=== PATIENT | female | born 1950 | race Caucasian/White ===

== ENCOUNTER 2018-10-20 11:16 | Inpatient (IN) | payer OTHER, MEDICAID ==
[~2018-10-20] VITALS: Ht 157.5 cm; Wt 110.7 kg
--- NOTE | ~2018-10-20 | EKG ---
[place], [place] ELECTROCARDIOGRAM REPORT NAME: ESME ORTIZ UNIT #: [id number] ROOM: 420 DOCTOR: OMID DRAFT REPORT BIRTHDATE: [birth year] [facility] Test Date: 2018-10-20 Test Time: 12:18:38 Pat Name: ESME ORTIZ Department: Room: 420 Gender: F Acid Conditioner: : 1950 Requested By: ZEV SANTORO Order Number: [id number] Reading MD: Landon Anne MD Measurements Intervals [place] Rate: 63 P: 69 CT: 176 QRS: -40 QRSD: 137 T: 59 QT: 436 QTc: 447 Interpretive Statements Sinus rhythm Probable left atrial enlargement Left bundle branch block Baseline wander in lead(s) V1 No previous ECG available for comparison Electronically Signed On 10-22-2018 11:21:27 PST by Landon Anne MD CM:EKGRPT:ELECTROCARDIOGRAM REPORT [id number] ZEV ANNE DRAFT REPORT ZEV SANTORO M.D.
[2018-10-20 11:18] VITALS: BP 163/68
--- NOTE | 2018-10-20 11:38 | NUR ---
PT UNABLE TO WALK. BEDSIDE TOUILET BROUGHT TO BEDSIDE BUT SHE IS UNABLE TO EFFECTIVELY BEAR WEIGHT FOR THIS AND IS UNABLE TO MAINTAIN A SEATED POSTURE INDEPENDENTLY AND WAS IMMEDIATELY RETURNED TO BED WITH 3 STAFF MEMBER ASSIST. PT DISROBED, CHECKED FOR WOUNDS AND A CAI CATH PLACED PER HER REQUEST. PT IS CONFUSED TO TIME AND LOCATION AND DOES NOT RESPOND TO REORIENTATION BUT SHE IS CALM, PLEASANT AND COMPLIANT.
[2018-10-20 11:47] LABS: BILIRUBIN NEGATIVE (NEGATIVE); BLOOD 1+ (NEGATIVE); CLARITY SL CLOUDY (CLEAR); COLOR YELLOW (YELLOW); GLUCOSE TRACE (NEGATIVE); KETONE NEGATIVE (NEGATIVE); LEUKO ESTERASE NEGATIVE (NEGATIVE); NITRITE NEGATIVE (NEGATIVE); PH 5.5 (5.0-9.0); UROBILINOGEN 0.2 E.U./dl (0.2-1.0)
[2018-10-20 12:06] LABS: BACTERIA 3+
[2018-10-20 12:20] LABS: BASO % 0.4 % (0.0-1.0); EOS # 0.2 10*3/uL (0.0-0.4); EOS % 2.3 % (1.0-4.0); HEMATOCRIT 28.1 % (37.0-47.0); HEMOGLOBIN 8.8 g/dl (12.0-16.0); LYMPH % 12.5 % (27.0-41.0); MEAN CELL VOLUME 96.2 fl (81.0-99.0); MEAN CORPUSCULAR HGB 30.1 pg (27.0-31.0); MEAN CORPUSCULAR HGB CONC 31.3 g/dl (33.0-37.0); MEAN PLATELET VOLUME 10.5 fl (9.6-12.3); MONO # 0.5 10*3/uL (0.1-1.0); MONO % 6.3 % (3.0-9.0); NEUT # 6.4 10*3/uL (2.3-7.9); NEUT % 78.3 % (47.0-73.0); PLATELET COUNT AUTOMATED 238 10*3/uL (130-400); RED BLOOD COUNT 2.92 10*6/uL (4.10-5.10); RED CELL DISTRI WIDTH 13.5 % (0-14.5); WHITE BLOOD COUNT 8.2 10*3/uL (4.8-10.8)
[2018-10-20 12:39] LABS: ALBUMIN 2.2 gm/dl (3.1-4.5); CREATININE 3.22 mg/dL (0.55-1.02); TOTAL PROTEIN 5.8 gm/dL (6.4-8.2)
[2018-10-20 12:42] LABS: POTASSIUM 6.3 mmol/L (3.5-5.1)
[2018-10-20 13:19] VITALS: BP 150/57
--- NOTE | 2018-10-20 13:50 | NUR ---
IV SITE PLACED LEFT UPPER ARM BY MOSHE. I HAD MISSED TWICE INITIALLY THEN ANOTHER 3 OR 4 MISSED ATTEMPTS BY NATHANAEL.
[2018-10-20 14:15] VITALS: BP 160/80
--- NOTE | 2018-10-20 14:15 | NUR ---
A 68, admitted to , under the services of DILIA Monroy DO with a diagnosis of PNEUMONIA, HYPERKALEMIA, ACUTE KIDNEY DISEASE. Chief complaint is PSYCHOLOGICAL EVALUATION. Patient arrived via bed from ER. Monitor applied. Initial assessment completed. Vital signs taken and recorded. DILIA MONROY DO notified of admission to the unit. Orders received. See assessment for past medical history, medications and allergies. Patient and/or family oriented to unit. [facility]. Clothing/patient valuable form completed. ALEXEY GARNER
[2018-10-20] MEDS ORDERED: ARTIFICIAL TEA1 EACH OP (14:46)
[2018-10-20] MEDS ORDERED: ELIQUIS5 M1 PO (14:46)
[2018-10-20] MEDS ORDERED: NORVASC5 MG PO (14:46)
[2018-10-20] MEDS ORDERED: BUMETANIDE1 MG PO (14:47)
[2018-10-20] MEDS ORDERED: ATORVASTATIN CA80 M1 PO (14:47)
[2018-10-20] MEDS ORDERED: ASPIR 8181 MG PO (14:47)
[2018-10-20] MEDS ORDERED: VITAMIN B-12250 MCG PO (14:48)
[2018-10-20] MEDS ORDERED: IRON325 M1 PO (14:48)
[2018-10-20] MEDS ORDERED: FLONASE ALLERG9.9 ML NAS (14:49)
[2018-10-20] MEDS ORDERED: NATURE'S BLEND F1 MG PO (14:49)
[2018-10-20] MEDS ORDERED: GEODON80 MG PO (14:50)
[2018-10-20] MEDS ORDERED: GABAPENTIN400 MG PO (14:50)
[2018-10-20] MEDS ORDERED: GEODON20 M1 IM (14:51)
[2018-10-20] MEDS ORDERED: HYDROXYZINE HCL25 MG PO (14:51)
[2018-10-20] MEDS ORDERED: HUMALOG100 UNIT/2 SQ (14:53)
[2018-10-20] MEDS ORDERED: KLOR-CON M2020 ME1 PO (14:54)
[2018-10-20] MEDS ORDERED: ISOSORBIDE DINI20 MG PO (14:54)
[2018-10-20] MEDS ORDERED: ZESTRIL10 MG PO (14:55)
[2018-10-20] MEDS ORDERED: LACTULOSE10 GM/153 PO (14:55)
[2018-10-20] MEDS ORDERED: LOMOTIL 2.5-0.1 EACH PO (14:56)
[2018-10-20] MEDS ORDERED: LOPRESSOR50 M1 PO (14:57)
[2018-10-20] MEDS ORDERED: GUAIFENESIN600 MG PO (14:58)
[2018-10-20] MEDS ORDERED: MIRALAX119 GM PO (14:58)
[2018-10-20] MEDS ORDERED: PAXIL40 M1 PO (14:59)
[2018-10-20] MEDS ORDERED: NITROSTAT0.4 MG SL (14:59)
[2018-10-20] MEDS ORDERED: TOUJEO SOL300 UNIT/1 SQ (15:00)
[2018-10-20] MEDS ORDERED: PROTONIX40 MG PO (15:00)
[2018-10-20] MEDS ORDERED: TRULANCE PO (15:02)
--- NOTE | 2018-10-20 15:04 | NUR ---
MED REC UPDATED VIA LIST PROVIDED BY [facility]
--- NOTE | 2018-10-20 15:50 | NUR ---
DR LYLE MADE AWARE OF SCAB TO TOE
--- NOTE | 2018-10-20 15:50 | NUR ---
DAUGHTER CALLED IN AND STATED THAT THE PATIENT DOES NOT HAVE A POA AND THAT SHE IS HER CONTACT WHEN SHE IS AT THE PRISON. JAMEY DID LIST THIS DAUGHTER ON THE PAPERWORK HER POA
[2018-10-20 16:00] VITALS: BP 154/60
--- NOTE | 2018-10-20 16:09 | NUR ---
PHYSICIAN WAS NOTIFIED OF DR. MCMAHON CONSULT. RESPONSE OF NOTIFICATION WAS NEW ORDERS RECEIVED, STOP LISINOPRIL,BUMEX AND POTASSIUM, KEEP CAI AND MAINTAIN ACCURATE I&O, URINE LYTES, URINE UREA NITROGEN, URINE CREATININE, RENAL US, LASIX 40MG IV NOW, INSULIN/DEXTROSE NOW. THEN REPEAT K IN 2 HRS.. ALEXEY GARNER
--- NOTE | 2018-10-20 16:32 | NUR ---
OFFICE STAFF WAS NOTIFIED OF BEHAVIORAL HEALTH CONSULT. RESPONSE OF NOTIFICATION WAS OK I'LL PUT HER ON THE BOARD. ALEXEY GARNER
--- NOTE | 2018-10-20 19:45 | NUR ---
BEDSIDE REPORT FROM SHEELA-RN. PATIENT IS AWAKE AND ALERT, VOICED NO COMPLAINTS AT THIS TIME. PARTICIPATED IN REPORT, PT STATES THAT SHE HAS HALLICINATED BUGS AND CHILDREN. NO DISTRESS NOTED, RESP ARE ERND ON ROOM AIR. BED IS LOCKED IN LOWEST POSITION, BED ALARM MAINTAINED. CALL LIGHT LEFT WITHIN REACH.
[2018-10-20 20:00] VITALS: BP 153/65
--- NOTE | 2018-10-20 21:20 | NUR ---
PATIENT MEDICATED WITH TYLENOL FOR C/O GENERALIZED BACL PAIN 01/06. WILL MONITOR.
--- NOTE | 2018-10-20 22:00 | NUR ---
PATIENT ASLEEP, CALL LIGHT LEFT WITHIN REACH.
--- NOTE | 2018-10-20 22:20 | NUR ---
TYLENOL APPEARS TO BE EFFECTIVE. PATIENT RESTING COMFORTABLY IN BED, EYES CLOSED, NO DISTRESS. CALL LIGHT LEFT WITHIN REACH.
[2018-10-21] VITALS: BP 92/38
--- NOTE | 2018-10-21 | NUR ---
SLEEPING, NO DISTESS NOTED. CALL LIGHT WITHIN REACH.
--- NOTE | 2018-10-21 00:25 | NUR ---
INFORMED OF MANUAL BP=92/38. STATED HE WILL ORDER ANOTHER BAG OF FLUIDS.
--- NOTE | 2018-10-21 02:00 | NUR ---
PATIENT SLEEPING, NO DISTRESS NOTED. RESP ARE ERND ON ROOM AIR. CALL LIGHT WITHIN REACH.
--- NOTE | 2018-10-21 02:27 | NUR ---
URINE SPECIMEN SENT TO LAB.
[2018-10-21 03:34] LABS: URINE CREATININE RANDOM 62.4 mg/dL
--- NOTE | 2018-10-21 04:00 | NUR ---
RESTING COMFORTABLY IN BED. CALL LIGHT WITHIN REACH.
--- NOTE | 2018-10-21 04:41 | NUR ---
24 HR chart check completed.
[2018-10-21 06:21] LABS: BASO % 0.4 % (0.0-1.0); EOS # 0.3 10*3/uL (0.0-0.4); EOS % 5.1 % (1.0-4.0); HEMATOCRIT 24.8 % (37.0-47.0); HEMOGLOBIN 7.7 g/dl (12.0-16.0); LYMPH # 1.3 10*3/uL (1.3-4.4); LYMPH % 26.5 % (27.0-41.0); MEAN CELL VOLUME 96.1 fl (81.0-99.0); MEAN CORPUSCULAR HGB 29.8 pg (27.0-31.0); MEAN PLATELET VOLUME 10.8 fl (9.6-12.3); MONO # 0.4 10*3/uL (0.1-1.0); MONO % 8.5 % (3.0-9.0); NEUT # 2.9 10*3/uL (2.3-7.9); NEUT % 59.3 % (47.0-73.0); PLATELET COUNT AUTOMATED 210 10*3/uL (130-400); RED BLOOD COUNT 2.58 10*6/uL (4.10-5.10); RED CELL DISTRI WIDTH 13.5 % (0-14.5); WHITE BLOOD COUNT 4.9 10*3/uL (4.8-10.8)
[2018-10-21 06:43] LABS: CREATININE 3.16 mg/dL (0.55-1.02)
[2018-10-21 06:50] LABS: THYROID STIM HORMONE (HS) 1.32 uIU/ml (0.358-4.75)
--- NOTE | 2018-10-21 07:08 | NUR ---
ESME ORTIZ [id number] Please refer to the physician's history and physical for past medical history, comorbid conditions, and allergies. Diagnosis: PNEUMONIA HYPERKALEMIA AC KIDNEY FAILURE W Brennon Score: 17,AT RISK WOUND DESCRIPTIONS: Patient has intact scab measuring 0.4cm x 0.3cm x <0.1 noted to right 4th toe. Patient is requesting to care for this area at home and she is also requesting to have podiatry cut her toenails. Surface the patient is resting on: Isoflex SKIN PREVENTION RECOMMENDATION: 1. Pressure redistribution support surface as appropriate 2. Elevate heels 3. Remove boots/TEDS every shift and reapply 4. Head of bed 30 degrees as tolerated 5. Assess nutrition and hydration 6. Manage moisture 7. Avoid the use of containment devices while in bed 8. Use absorptive products on surfaces limit layers of linens on bed 9. Turn and reposition every 1-2 hours in bed and every 1 hour in chair as tolerated 10. Weight shifts every 15 minutes while up in chair 11. Offloading with pillows or device to keep heels elevated off bed 12. Monitor skin at least every shift 13. Inspect under medical devices twice a day WOUND TREATMENT RECOMMENDATIONS: Consult podiatry for toenail care.
[2018-10-21 07:20] VITALS: BP 138/80
[2018-10-21 08:06] LABS: FERRITIN 130.9 ng/mL (10.0-291.0)
[2018-10-21 08:07] LABS: PTH INTACT 184.8 pg/mL (18.5-88.0)
--- NOTE | 2018-10-21 09:26 | NUR ---
Dr. Singh notified of wound care recommendations.
--- NOTE | 2018-10-21 10:30 | NUR ---
DR. ONOFRE NOTIFIED OF CONSULT FOR FOOT CARE.
[2018-10-21 12:00] VITALS: BP 154/60
--- NOTE | 2018-10-21 15:35 | NUR ---
PATIENT IN ULTRASOUND FOR VENOUS/ARTERIAL STUDIES. RECEIVED PHONE CALL FROM DAIRY EQUIPMENT REPAIRER RE: PATIENT WAS BY HERSELF FOR A SHORT TIME, THEN FOUND CRAWLING ON THE FLOOR, INCONTINENT OF URINE AND STATING "GETTING PICKLES OUT OF THE FRIDGE". PATIENT STATED SHE LET HER OWN SIDERAIL DOWN SO SHE COULD GET OUT. PATIENT DENIED ANY INJURY, PER STAFF, AND IS STILL DOWN IN THE DEPARTMENT. DR. LYLE NOTIFIED.
[2018-10-21 16:00] VITALS: BP 113/96
--- NOTE | 2018-10-21 16:21 | NUR ---
PATIENT BACK FROM ULTRASOUND, IS AGITATED AND COMBATIVE WITH TRANSFERRING FROM CART TO BED AND ASSESSMENTS. SHE IS SEEING INSECTS AND STATES THE STAFF ARE CHILDREN.
--- NOTE | 2018-10-21 17:01 | NUR ---
ADMINISTERED IM GEODON FOR AGITATION.
--- NOTE | 2018-10-21 17:57 | NUR ---
PRN IM GEODON EFFECTIVE, PATIENT RESTING CALMLY.
[2018-10-21 20:00] VITALS: BP 154/50
--- NOTE | 2018-10-21 23:40 | NUR ---
PATIENT YELLING OUT THAT SHE IS ON THE CEILING AND THAT SOMEONE NEEDS TO COME AND GET HER DOWN. ALSO YELLING THAT THERE ARE BEES FLYING AROUND. PRN IV GEODON GIVEN FOR AGITATION. PT ALSO INCONTINENT OF BOWEL AT THIS TIME.
[2018-10-22] VITALS: BP 119/40
--- NOTE | 2018-10-22 00:15 | NUR ---
PRN GEODON APPEARS EFFECTIVE, PT CALM AND NOT YELLING OUT. RESP EASY AND REGULAR ON ROOM AIR, NO DISTRESS NOTED.
--- NOTE | 2018-10-22 03:20 | NUR ---
IV started right forearm with #24 protective cath after 3 attempts. Site prepped with Chloroprep. Sterile dressing applied. Patient tolerated procedure well. BRI BARCENAS
[2018-10-22 06:25] LABS: BASO % 0.2 % (0.0-1.0); EOS # 0.2 10*3/uL (0.0-0.4); EOS % 4.4 % (1.0-4.0); HEMATOCRIT 25.7 % (37.0-47.0); HEMOGLOBIN 8.1 g/dl (12.0-16.0); LYMPH % 19.5 % (27.0-41.0); MEAN CELL VOLUME 95.2 fl (81.0-99.0); MEAN CORPUSCULAR HGB CONC 31.5 g/dl (33.0-37.0); MONO # 0.4 10*3/uL (0.1-1.0); MONO % 8.2 % (3.0-9.0); NEUT # 3.5 10*3/uL (2.3-7.9); NEUT % 67.5 % (47.0-73.0); PLATELET COUNT AUTOMATED 221 10*3/uL (130-400); RED CELL DISTRI WIDTH 13.3 % (0-14.5); WHITE BLOOD COUNT 5.2 10*3/uL (4.8-10.8)
[2018-10-22 06:32] LABS: CREATININE 2.78 mg/dL (0.55-1.02); POTASSIUM 4.4 mmol/L (3.5-5.1)
[2018-10-22 08:00] VITALS: BP 142/50
[2018-10-22 12:00] VITALS: BP 143/68
[2018-10-22 12:13] LABS: MICRO ALBUMIN/CRE RATIO 2558.6 (0.0-30.0)
[2018-10-22] MEDS ORDERED: LEVAQUIN750 M1 PO (13:18)
[2018-10-22 16:00] VITALS: BP 135/52
--- NOTE | 2018-10-22 16:45 | NUR ---
Discharge instructions reviewed with patient/family. Patient receptive and verbalizes understanding. Follow-up care arranged WITH PCP AND NEPROLOGY IN ONE WEEK. WRITTEN INSTRUCTIONS GIVEN TO PATIENT. PATIENT TAKEN OFF THE FLOOR VIA BED TO U WITH ESCORT AND U NURSE PRESENT, IV SITE REMOVED. SULMA AGEE
== END 2018-10-22 16:45 | disposition home health service (06) | DRG 682 ==
LOC: ED 11:16 → 4E 13:53 → EDHOLD 13:53 → 4E 13:59
PROVIDERS: Emergency Medicine; Internal Medicine Nephrology; Student in an Organized Health Care Education/Training Program; ADMIT Internal Medicine
DX: N17.0 Acute kidney failure with tubular necrosis (principal); E43 Unspecified severe protein-calorie malnutrition; J18.9 Pneumonia, unspecified organism; I13.0 Hypertensive heart and chronic kidney disease with heart failure and stage 1 through stage 4 chronic kidney disease, or unspecified chronic kidney disease; N25.81 Secondary hyperparathyroidism of renal origin; N18.3 Chronic kidney disease, stage 3 (moderate); E87.5 Hyperkalemia; E87.8 Other disorders of electrolyte and fluid balance, not elsewhere classified; E11.65 Type 2 diabetes mellitus with hyperglycemia; I48.0 Paroxysmal atrial fibrillation; E66.01 Morbid (severe) obesity due to excess calories; D63.8 Anemia in other chronic diseases classified elsewhere; E86.0 Dehydration; E83.39 Other disorders of phosphorus metabolism; E83.52 Hypercalcemia; E11.22 Type 2 diabetes mellitus with diabetic chronic kidney disease; F41.1 Generalized anxiety disorder; E78.5 Hyperlipidemia, unspecified; G47.33 Obstructive sleep apnea (adult) (pediatric); F32.9 Major depressive disorder, single episode, unspecified; I50.9 Heart failure, unspecified; G51.0 Bell's palsy; Z90.49 Acquired absence of other specified parts of digestive tract; Z90.710 Acquired absence of both cervix and uterus; Z79.82 Long term (current) use of aspirin; Z79.84 Long term (current) use of oral hypoglycemic drugs; Z79.899 Other long term (current) drug therapy

== ENCOUNTER 2018-10-22 15:59 | Inpatient (IN) | payer OTHER, MEDICAID ==
[~2018-10-22] VITALS: Ht 157.4 cm; Wt 108.9 kg
--- NOTE | ~2018-10-22 | PR ---
[place], [place] PROGRESS NOTE NAME: ESME ORTIZ UNIT #: [id number] ROOM: 316 DOCTOR: RODOFLO JONES MD BIRTHDATE: [birth year] DOS: 10/28/2018 CHIEF COMPLAINT: "Oh good morning, I would like to get better." SUMMARY OF THE VISIT: The patient was interviewed as she was finishing her breakfast. She engaged in more meaningful conversation than she had been, although it was very superficial. She lacks spontaneity, but did respond to my questions. She does seem to have memory gaps still that are rather persistent. MENTAL STATUS: She is alert and oriented to person, most likely place, but not time. Mood does seem to be more euthymic. Affect is more appropriate. There is no pat or hypomania noted, although nurses report bizarre behavior at times and at times responding to unforeseen others or seeing things. Short term memory continues to be problematic. PLAN: I will check a valproic acid level at 1500 hours given the fact that she is on the Depakote ER prep. I will simultaneously increase Exelon patch from 4.6 to 9.5 mg a day while increasing Namenda to 5 mg b.i.d. We will engage in individual and sotelo milieu activity, returning to the least restrictive environment when psychiatrically stable. RODOLFO JONES MD CM:PNTRANS [id number] RODOLFO JONES MD 10/28/18 1155 interface
--- NOTE | ~2018-10-22 | PR ---
[place], [place] PROGRESS NOTE NAME: ESME ORTIZ UNIT #: [id number] ROOM: 316 DOCTOR: RODOLFO JONES MD BIRTHDATE: [birth year] DOS: 11/04/2018 INTERVAL NOTE CHIEF COMPLAINT: "I want some more [place]." SUMMARY OF THE VISIT: The patient was interviewed in the dining area. She had already eaten her breakfast and was sitting drinking a grape juice. The patient was much more alert and able to engage in conversation. Her conversation for the most part was goal directed and she was very fixated on getting seconds. She was pleasant and cooperative. There was no yelling out. There was no agitation. Nurses report that she was somewhat somnolent for the most part yesterday, but as the day progressed, this seemed to improve. Her BUN and creatinine are improving from yesterday's highest level. MENTAL STATUS EXAMINATION: This morning, she is alert and oriented to person, place, but not time. Mood does seem to be finally trending towards euthymia. Affect is more appropriate. There is no pat or hypomania. There are no gross psychotic symptoms. There are no overt auditory or visual hallucinations. No delusions, no paranoia. PLAN: I will discontinue her Depakote ER. Since admission her level has been subtherapeutic and I doubt any pharmacologic significance from the Depakote instead I will just maintain her on Geodon at bedtime. We will monitor and support, engage in individual and sotelo milieu activity, returning to the least restrictive environment when psychiatrically stable. RODOLFO JONES MD CM:PNTRANS [phone] RODOLFO JONES MD 11/04/18 1402 interface
--- NOTE | ~2018-10-22 | PR ---
[place], [place] PROGRESS NOTE NAME: ESME ORTIZ UNIT #: [id number] ROOM: 316 DOCTOR: JAILENE PERES CNP BIRTHDATE: [birth year] DOS: 11/01/2018 CHIEF COMPLAINT: "I slept really well last night." SUMMARY OF VISIT: The patient was interviewed as she sat in the dining room, eating her lunch. The patient engaged readily in conversation with me. She reports that she slept very well last night and she feels rested today. She reports feeling better and less irritable. She reports that her appetite is good. Staff reports that the patient slept all night and did not get up until before lunch. No behaviors noted today. No yelling out. MENTAL STATUS EXAMINATION: The patient is alert and oriented to person, place and time with some memory gaps. No pat or hypomania noted. No delusions or paranoia noted. No psychotic symptoms noted. No auditory or visual hallucinations noted. Mood was calm. Affect congruent with mood. No lethargy noted today. PLAN: The patient's ammonia level was 19 today. Neurontin level has been ordered for November 02. Her H and H has improved, so we will continue the patient's medications as prescribed at this time as she seems to be tolerating them. Continue to encourage the patient to engage in individual and sotelo milieu activity. Continue fall and safety precautions. Plan to return the patient to the least restrictive environment once considered psychiatrically stable. Jailene Peres CNP CM:PNTRANS [id number] JAILENE PERES CNP 11/02/18 0217 interface
--- NOTE | ~2018-10-22 | PR ---
[place], [place] PROGRESS NOTE NAME: ESME ORTIZ UNIT #: [id number] ROOM: 316 DOCTOR: RDOOLFO JONES MD BIRTHDATE: [birth year] DOS: 11/05/2018 INTERVAL NOTE CHIEF COMPLAINT: "Morning." SUMMARY OF THE VISIT: The patient was interviewed or attempted to be interviewed as she was sleeping in a Janette chair in the dining area. It took me several attempts to engage her and she did open her eyes briefly to say good morning and then went back to sleep. This seems to be her pattern. 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 Otherwise, her behavior has improved and she has been much more cooperative and pleasant as the day goes on. MENTAL STATUS: She is alert and oriented with time gaps. Mood does seem to be more euthymic. Affect more appropriate. No pat, hypomania or psychosis. Short-term memory still is problematic. PLAN: I will go ahead and max out her dose of Namenda, bringing it to 10 mg b.i.d. Continue to engage in individual and sotelo milieu activity, returning to the least restrictive environment when psychiatrically stable. RODOLFO JONES MD CM:PNTRANS [id number] 1 RODOLFO JONES MD 11/06/18 0242 interface
--- NOTE | ~2018-10-22 | PR ---
[place], [place] PROGRESS NOTE NAME: ESME ORTIZ UNIT #: [id number] ROOM: 316 DOCTOR: RODOLFO JONES MD BIRTHDATE: [birth year] DOS: 10/26/2018 CHIEF COMPLAINT: The patient was overly somnolent. SUMMARY OF THE VISIT: The patient was attempted to be interviewed in the dining area. She was sleeping. I called her name out repeatedly, but to no avail. I did put my hand on her shoulder and did shake her very gently. She did not arouse. Nurses report she continues to exhibit significant psychotic symptomatology with mood lability. MENTAL STATUS: My mental status is limited by her lack of participation due to somnolence. PLAN: At this point, I will check a Neurontin level in the a.m. to ensure it is therapeutic. I will increase her Invega from 6 to 9 mg in the morning and add Cogentin 0.5 mg b.i.d. to eliminate any potential extrapyramidal symptoms. Her mouth did appear dry as I interviewed her, so I have given order for Xero-Lube spray p.r.n. We will continue to engage in individual and sotelo milieu activity, returning to the least restrictive environment when psychiatrically stable. RODOLFO JONES MD CM:PNTRANS [id number] 1250 RODOLFO JONES MD 10/26/18 1250 interface
--- NOTE | ~2018-10-22 | PR ---
[place], [place] PROGRESS NOTE NAME: ESME ORTIZ UNIT #: [id number] ROOM: 316 DOCTOR: RODOLFO JONES MD BIRTHDATE: [birth year] DOS: 10/29/2018 CHIEF COMPLAINT: "Oh, I'm feeling pretty good, thank you." SUMMARY OF THE VISIT: The patient was interviewed as she was finishing her breakfast. She was very much engaged in eating. She did stop enough to engage in conversation. She voiced no complaints, reporting good sleep and appetite and stating that she is feeling better. MENTAL STATUS: She is alert and oriented to person, place, but not time. Mood does seem to be trending towards euthymia. Affect is more appropriate. There is no pat, hypomania or gross psychosis. Short term memory remains poor. PLAN: I will go ahead and maximize the dose of Exelon patch to 13.3 mg a day, consider doing the same to the Namenda tomorrow or the next day, engage in individual and sotelo milieu activity, returning then to the least restrictive environment when psychiatrically stable. RODOLFO JONES MD CM:PNTRANS [id number] RODOLFO JONES MD 10/29/18 1210 interface
--- NOTE | ~2018-10-22 | PR ---
[place], [place] PROGRESS NOTE NAME: ESME ORTIZ UNIT #: [id number] ROOM: 316 DOCTOR: KENY, PHD ANN BIRTHDATE: [birth year] DOS: 11/03/2018 The patient was too somnolent to participate in an evaluation. I will follow up tomorrow. Dana Severino PhD CM:PNTRANS [id number] PHD SETH SEVERINO 11/04/18 0019 interface
--- NOTE | ~2018-10-22 | PR ---
[place], [place] PROGRESS NOTE NAME: ESME ORTIZ UNIT #: [id number] ROOM: 316 DOCTOR: KENY, PHD ANN BIRTHDATE: [birth year] DOS: 11/02/2018 I followed up with the patient today for cognitive evaluation. She was slightly more alert than she was previously, but her speech was unintelligible. I will follow up with the patient tomorrow. Dana Severino, PhD CM:PNTRANS [phone] 3 PHD SETH SEVERINO 11/03/184 interface
--- NOTE | ~2018-10-22 | WRIGHTHP ---
[place], [place] PATIENT HISTORY AND PHYSICAL EXAM [id number] UNIT #: [id number] ROOM: 317 DOCTOR: RODOLFO JONES MD BIRTHDATE: [birth year] DOS: 10/22/2018 INITIAL PSYCHIATRIC EVALUATION CHIEF COMPLAINT: "I guess I am here to get my meds fixed." HISTORY OF PRESENT ILLNESS: This is a 68-year-old white female who is a resident of [facility] in [place], [place]. The patient was initially admitted to the medical floor due to increased hypertension, heart failure and hyperkalemia. The patient though had been [facility] for [facility] because of bizarre behavior. The patient had been picking at bugs that were not there, falling to the ground once because she was reaching so far to get a suspected bug. She also had been yelling out to staff to help her come down from the ceiling stating that she was floating on the ceiling and could not come down. This behavior was a significant change from her baseline. She also had significant alterations in basic ADLs such as poor sleep and appetite. Given the fact that these behaviors were so prominent, it was felt that an inpatient stabilization and evaluation was warranted. PAST MEDICAL HISTORY: Significant for allergic rhinitis, anemia of chronic disease, atrial fibrillation, Juan's palsy, congestive heart failure, chronic kidney disease stage 3, gait disturbance, hypertension, GERD, hyperlipidemia, morbid obesity, obstructive sleep apnea, diabetes, vitamin D deficiency and a lengthy history of major depression. SOCIAL HISTORY: The patient does not drink alcohol, smoke cigarettes nor does she use illicit drugs. ALLERGIES: LISTED TOWARDS BACITRACIN, KETOROLAC, NEOMYCIN, POLYMYXIN B. STRENGTHS: Ambulatory, good verbal skills. WEAKNESSES: Poor coping skills, chronic psychiatric issues. MENTAL STATUS: She is alert and oriented with time gaps. Mood does seem to be rather depressed and anxious. She is somewhat guarded and this was not totally forthcoming on the events that led to her coming into the hospital. Nurses do report some rather bizarre sexual behavior where she had stripped naked and was masturbating publicly. Memory has some gaps, otherwise she is intact. DIAGNOSES: Major depression, recurrent with psychotic features, rule out bipolar or schizoaffective disorder. PLAN: I have already discontinued her Paxil in lieu of Remeron 15 mg at bedtime. I have also discontinued her Geodon, which is being given at 80 mg b.i.d. in lieu of Invega 6 mg in the morning. She was episodically noncompliant with her medications while at the long-term care facilities. By limiting the amount of meds that are being presented to her my hope is that she will be more compliant and we can breakthrough some of the mood lability and psychosis. Screening examinations upon admission show her to have a low vitamin D level of [place], [place] PATIENT HISTORY AND PHYSICAL EXAM NAME: ESME ORTIZ UNIT #: [id number] ROOM: [facility] DOCTOR: RODOLFO JONES MD BIRTHDATE: [birth year] 12.9. I will treat with vitamin D 5000 International Units daily. We will engage in individual and sotelo milieu activity with the ultimate plan to return to the least restrictive environment when psychiatrically stable. RODOLFO JONES MD CM:HISPHYS:PATIENT HISTORY AND PHYSICAL EXAMINATION [id number] RODOLFO JONES MD 10/23/18 0955 interface
--- NOTE | ~2018-10-22 | PR ---
[place], [place] PROGRESS NOTE NAME: ESME ORTIZ UNIT #: [id number] ROOM: 316 DOCTOR: RODOLFO JONES MD BIRTHDATE: [birth year] DOS: 11/02/2018 CHIEF COMPLAINT: "Oh thank you for visiting." SUMMARY OF THE VISIT: The patient was interviewed as she was sitting eating breakfast. She had most of her tray eaten, and I only found out that this was her second tray when the staff intervened. She was very bright and pleasant with me and engaging. She offered no complaints. Staff notes, however, she has periods when she seems to become extremely confused and talk nonsensically. These can occur at various times a day and even at night. They are often accompanied by her becoming wildly labile and yelling out nonstop. MENTAL STATUS EXAMINATION: This morning, she is alert and oriented to person, place, not necessarily to time. Mood does seem to be fairly euthymic this morning. There was no hypomania or pat. There are no gross psychotic symptoms evident this morning. Short-term memory though was poor. PLAN: I will go ahead and discontinue Invega due to ineffectiveness and start Geodon 40 mg twice daily. Of note, her BUN and creatinine have continued to inch up gradually since her admission, and I will defer this to the hospitalist to determine if any further intervention is required. RODOLFO JONES MD CM:PNTRANS [phone] RODOLFO JONES MD 11/02/18 1234 interface
--- NOTE | ~2018-10-22 | PR ---
[place], [place] PROGRESS NOTE NAME: ESME ORTIZ UNIT #: [id number] ROOM: 316 DOCTOR: PHD SETH SEVERINO BIRTHDATE: [birth year] DOS: 10/28/2018 SUBJECTIVE: The patient was too somnolent to participate in an evaluation today. I will follow up tomorrow. Dana Severino, CM:DENA [id number] PHD SETH SEVERINO 10/28/18 1444 interface
--- NOTE | ~2018-10-22 | CON ---
[place], [place] REPORT OF CONSULTATION NAME: ESME ORTIZ UNIT #: [id number] ROOM: 316 DOCTOR: PHD KENY SETH BIRTHDATE: [birth year] DOS: 11/04/2018 HISTORY OF PRESENT ILLNESS: The patient is a 68-year-old female referred by Dr. William for cognitive evaluation. At the present time, the patient is on the [facility] at [facility]. She is a resident at [facility] where she had been exhibiting bizarre behavior such as reaching for bugs that were not there. This represents a significant change from her baseline functioning. She has been from her for about 12 years, but they remain close. She had 3 children, one of her sons about 4 years ago. She was a [employer] in the past. There is no indication of substance abuse. PAST MEDICAL HISTORY: Allergic rhinitis, atrial fibrillation, Juan's palsy, CKD, edema, hypertension, generalized anxiety disorder, GERD, heart failure, hyperlipidemia, muscle wasting and atrophy, obstructive sleep apnea, type 2 diabetes, vitamin D deficiency. MEDICATIONS: Geodon, Neurontin, Namenda, Exelon, Cogentin, Vistaril, vitamin D, B12, Lantus, Protonix, folic acid, aspirin, Norvasc, Systane, Lopressor, Cephulac, Isordil, Flonase, Feosol, Lipitor, Eliquis, Mucinex, Remeron, Geodon. The patient was sitting comfortably, in no apparent distress. She was oriented to person. She could name the president, but named the past president as Adama Shoemaker. She could not give any current events. Eye contact and social skills are poor. Affect was blunted and mood was Irritable. The patient endorsed suicidal ideation, but stated she did not have a plan. She denied homicidal ideation. Speech was poorly articulated. Thought process was tangential, perseverative. She discussed a johnson. There was evidence of delusions. The patient stated there was a johnson, she did not want to get drawn into with the anti-Semites. She was able to spell world forwards, but not backwards. She could perform 2 correct serial 7 subtractions. She was able to repeat 4 digits forward and 3 digits backward. She was not able to recall 3 items after a brief delay. She only produced 3 words in 1 minute on a test of verbal fluency. Overall, the patient has demonstrated some cognitive deficits in the areas of attention and memory. Contributing factors to her presentation likely include her current health status, medication effects, and of heart disease as well as diabetes and kidney disease. The extent of her cognitive deficits at baseline remains unclear. She would benefit from further testing once she is released from the hospital to further explore her cognitive status. DIAGNOSES: Major depressive disorder, recurrent with psychotic features, rule out schizoaffective disorder; unspecified neurocognitive disorder; unspecified delirium. RECOMMENDATIONS: 1. The patient would likely benefit from further psychological testing upon discharge. 2. Continue to monitor her cognitive status. She may benefit from guardianship if her cognitive abilities do not improve prior to discharge. [place], [place] REPORT OF CONSULTATION NAME: ESME ORTIZ UNIT #: [id number] ROOM: 316 DOCTOR: KENY, PHD SETH BIRTHDATE: [birth year] Thank you very much for this consult. Dana Severino, PhD CM:CONSTR:REPORT OF CONSULTATION 1729 11/10/18 0824 interface
--- NOTE | ~2018-10-22 | PR ---
[place], [place] PROGRESS NOTE NAME: ESME ORTIZ UNIT #: [id number] ROOM: 316 DOCTOR: RODOLFO JONES MD BIRTHDATE: [birth year] DOS: 11/03/2018 CHIEF COMPLAINT: "Good morning." SUMMARY OF THE VISIT: The patient was interviewed or attempted to be interviewed as she was sitting slouched in the dining area. She was somnolent upon approach, but did awaken and engage in brief superficial conversation, but for the most part was very somnolent and her responses were short, at times nonsensical. The patient does also appear to be very dry with her oral mucosa. BUN and creatinine remain markedly elevated. MENTAL STATUS: She is alert and oriented to self. Responses are short, simple. Her responses tended to be at times nonsensical. There was no agitation or aggression. There was no yelling out. Short term memory continues to be problematic. PLAN: I will change her Geodon from 40 mg twice a day to 80 mg at bedtime lessening of the daytime dose so somnolence should be much less during the day. This should also further aid her sleep. We will engage in individual and sotelo milieu activity, returning then to the least restrictive environment when psychiatrically stable. RODOLFO JONES MD CM:PNTRANS [id number] RODOLFO JONES MD 11/03/18 1023 interface
--- NOTE | ~2018-10-22 | PR ---
[place], [place] PROGRESS NOTE NAME: ESME ORTIZ UNIT #: [id number] ROOM: 316 DOCTOR: KENY, PHD ANN BIRTHDATE: [birth year] DOS: 10/29/2018 The patient was again not able to participate in cognitive assessment due to her somnolence. I will follow up with the patient on Friday if she is still here. aDna Severino, PhD CM:PNDALIA [id number] PHD SETH SEVERINO 10/29/18 2332 interface
--- NOTE | ~2018-10-22 | DS ---
[place], [place] DISCHARGE SUMMARY NAME: ESME ORTIZ UNIT #: [id number] ROOM: 316 DOCTOR: RODOLFO JONES MD BIRTHDATE: [birth year] DOS: 11/06/2018 CHIEF COMPLAINT: "I guess I am here to get my meds fixed." HISTORY OF PRESENT ILLNESS: This is a 68-year-old white female who is a resident of [facility] in [place], [place]. The patient was initially admitted to the medical floor at [facility] due to hypertension, heart failure and hyperkalemia. While there, she had been sent to [address] [place] [address] for medical clearance for [facility] admission because of bizarre behavior. The patient had been picking at bugs that were not there, falling to the ground because she was reaching for the bugs. She has been yelling out at staff to come help her. The yelling has become nonstop and has been extremely disruptive to the entire milieu. Attempts to change her medicine have been unsuccessful and the behaviors continued to persist and escalate. She has had poor ADLs as well and has been not eating or drinking well. Once the patient was medically stabilized on the medical floor, she was transferred back to the [facility] to further stabilize her and returning her then to the least restrictive environment when stable. SUMMARY OF HOSPITAL COURSE: The patient was admitted to the unit where her Paxil was discontinued due to ineffectiveness and Remeron 15 mg a day was started. Geodon was discontinued in lieu of Invega 6 mg in the morning. She persisted on these medicines for sometime, it became evident the patient was experiencing some cognitive decline, so Exelon patch was started at 4.6 mg a day and then this was later augmented with Namenda 5 mg a day. The Exelon patch was brought to its maximum dose of 13.3 mg daily while Namenda likewise was brought to its maximum dose of 10 mg b.i.d. After utilizing the Invega for many days without any benefit and noticing that the patient did receive significant benefit when she did receive an intermuscular injection of Geodon, the patient was restarted back on her Geodon with good results. This did seem to stabilize her mood and decrease the yelling out episodes as well as decrease the psychotic symptomatology. She tolerated this combination of medicines well and improved slowly, but significantly during her stay. The patient was able to return back to [facility] at that time. MENTAL STATUS AT DISCHARGE: The patient is alert and oriented to self, unclear place, certainly not time. Mood does seem to be strongly trending towards euthymia. Affect is more appropriate. There are no symptoms of pat, hypomania or psychosis. Memory is still poor. DIAGNOSES UPON DISCHARGE: Major depression, recurrent with psychotic features and Alzheimer's dementia. DISPOSITION: The patient is to be readmitted to [facility]. I will be the treating psychiatrist of record. All of her prescriptions have been E-scribed to [employer] [facility]. At the time of discharge, she was psychiatrically and medically stable. [place], [place] DISCHARGE SUMMARY NAME: ESME ORTIZ UNIT #: [id number] ROOM: [facility] DOCTOR: RODOLFO JONES MD BIRTHDATE: [birth year] RODOLFO JONES MD CM:DISCHARG 7 7 RODOLFO JONES MD 11/06/1859 interface
--- NOTE | ~2018-10-22 | PR ---
[place], [place] PROGRESS NOTE NAME: ESME ORTIZ UNIT #: [id number] ROOM: 316 DOCTOR: JAILENE PERES CNP BIRTHDATE: [birth year] DOS: 10/31/2018 CHIEF COMPLAINT: "I didn't sleep." SUMMARY OF THE VISIT: The patient was interviewed as she sat in the dining room after breakfast. The patient appears to be somewhat lethargic at this time. She does arouse easily when I called her name and she engages minimally in conversation with me. She reports that she did not sleep last night and that she is very tired. Staff reports that the patient continues to exhibit behaviors as well as yelling out at times. They report that she has not been sleeping well at night. Her Neurontin was decreased to 200 mg 3 times a day. MENTAL STATUS EXAMINATION: The patient is alert and oriented to herself only. She does appear somewhat lethargic. There is no pat or hypomania noted. No delusions or paranoia noted. No psychotic symptoms noted. No auditory or visual hallucinations noted. Her mood was calm. Affect was congruent with mood. No aggression or agitation noted at this time. PLAN: We will check a gabapentin level on 11/02/2018. We will also check a serum ammonia level. We will continue to monitor if the patient sleeps with the recent adjustment of Remeron 15 at bedtime. Continue to encourage the patient to engage in individual and sotelo milieu activity. Continue fall and safety precautions. Plan to return the patient to the least restrictive environment once considered psychiatrically stable. Jailene Peres CNP CM:PNTRANS [id number] JAILENE PERES CNP 11/01/18 0220 interface
--- NOTE | ~2018-10-22 | PR ---
[place], [place] PROGRESS NOTE NAME: ESME ORTIZ UNIT #: [id number] ROOM: 316 DOCTOR: RODOLFO JONES MD BIRTHDATE: [birth year] DOS: 10/27/2018 INTERVAL NOTE CHIEF COMPLAINT: "Yeah, I came here from [place]. I used to live in [place]." SUMMARY OF THE VISIT: The patient was interviewed as she was sitting eating her breakfast. She did seem rather perplexed and confused, reporting that she came here to the hospital directly from [place] and that long ago she used to live in [place]. There does seem to be some cognitive impairment present. She was pleasant and cooperative, however, and not agitated in any way. She also was outwardly tolerating the medications well. MENTAL STATUS EXAMINATION: She is alert and oriented with time gaps. Mood does seem to be more euthymic. Affect more appropriate. There is no pat, hypomania. There is no gross psychosis. Short-term memory is problematic. PLAN: I will go ahead and simultaneously start Exelon patch 4.6 mg a day with Namenda 5 mg a day. I will obtain a psychology consult to determine cognitive impairment. RODOLFO JONES MD CM:PNTRANS [id number] RODOLFO JONES MD 10/28/18 0053 interface
[~2018-10-22 15:59] MED LIST: ARTIFICIAL TEA1 EACH OP; ASPIR 8181 MG PO; ATORVASTATIN CA80 M1 PO; BUMETANIDE1 MG PO; ELIQUIS5 M1 PO; FLONASE ALLERG9.9 ML NAS; GABAPENTIN400 MG PO; GEODON20 M1 IM; GEODON80 MG PO; GUAIFENESIN600 MG PO; HUMALOG100 UNIT/2 SQ; HYDROXYZINE HCL25 MG PO; IRON325 M1 PO; ISOSORBIDE DINI20 MG PO; KLOR-CON M2020 ME1 PO; LACTULOSE10 GM/153 PO; LEVAQUIN750 M1 PO; LOMOTIL 2.5-0.1 EACH PO; LOPRESSOR50 M1 PO; MIRALAX119 GM PO; NATURE'S BLEND F1 MG PO; NITROSTAT0.4 MG SL; NORVASC5 MG PO; PAXIL40 M1 PO; PROTONIX40 MG PO; TOUJEO SOL300 UNIT/1 SQ; TRULANCE PO; VITAMIN B-12250 MCG PO; ZESTRIL10 MG PO
[2018-10-22 17:41] VITALS: BP 158/70
[2018-10-22 17:45] VITALS: BP 158/70
[2018-10-22 20:00] VITALS: BP 140/85
[2018-10-23 06:53] LABS: BASO % 0.2 % (0.0-1.0); EOS # 0.3 10*3/uL (0.0-0.4); EOS % 6.3 % (1.0-4.0); HEMATOCRIT 25.6 % (37.0-47.0); HEMOGLOBIN 8.1 g/dl (12.0-16.0); LYMPH # 0.9 10*3/uL (1.3-4.4); LYMPH % 18.8 % (27.0-41.0); MEAN CELL VOLUME 93.8 fl (81.0-99.0); MEAN CORPUSCULAR HGB 29.7 pg (27.0-31.0); MEAN CORPUSCULAR HGB CONC 31.6 g/dl (33.0-37.0); MEAN PLATELET VOLUME 10.3 fl (9.6-12.3); MONO # 0.4 10*3/uL (0.1-1.0); MONO % 7.6 % (3.0-9.0); NEUT # 3.3 10*3/uL (2.3-7.9); NEUT % 66.9 % (47.0-73.0); PLATELET COUNT AUTOMATED 221 10*3/uL (130-400); RED BLOOD COUNT 2.73 10*6/uL (4.10-5.10); RED CELL DISTRI WIDTH 13.1 % (0-14.5); WHITE BLOOD COUNT 4.9 10*3/uL (4.8-10.8)
[2018-10-23 07:08] LABS: ALBUMIN 1.9 gm/dl (3.1-4.5); CREATININE 2.41 mg/dL (0.55-1.02); POTASSIUM 4.2 mmol/L (3.5-5.1); TOTAL PROTEIN 5.3 gm/dL (6.4-8.2)
[2018-10-23 07:15] LABS: THYROID STIM HORMONE (HS) 1.7 uIU/ml (0.358-4.75)
[2018-10-23 08:19] VITALS: BP 154/65
[2018-10-23 08:46] LABS: VITAMIN D, 25-HYDROXY 12.9 ng/mL (30-100)
[2018-10-23 19:32] VITALS: BP 137/79
[2018-10-24 08:00] VITALS: BP 147/56
[2018-10-24 13:40] LABS: BASO % 0.5 % (0.0-1.0); EOS # 0.2 10*3/uL (0.0-0.4); EOS % 5.3 % (1.0-4.0); HEMATOCRIT 23.9 % (37.0-47.0); HEMOGLOBIN 7.7 g/dl (12.0-16.0); LYMPH % 22.4 % (27.0-41.0); MEAN CELL VOLUME 93.7 fl (81.0-99.0); MEAN CORPUSCULAR HGB 30.2 pg (27.0-31.0); MEAN CORPUSCULAR HGB CONC 32.2 g/dl (33.0-37.0); MEAN PLATELET VOLUME 10.5 fl (9.6-12.3); MONO # 0.3 10*3/uL (0.1-1.0); MONO % 7.6 % (3.0-9.0); NEUT # 2.8 10*3/uL (2.3-7.9); PLATELET COUNT AUTOMATED 208 10*3/uL (130-400); RED BLOOD COUNT 2.55 10*6/uL (4.10-5.10); RED CELL DISTRI WIDTH 13.2 % (0-14.5); WHITE BLOOD COUNT 4.4 10*3/uL (4.8-10.8)
[2018-10-24 13:53] LABS: CREATININE 2.31 mg/dL (0.55-1.02); POTASSIUM 4.5 mmol/L (3.5-5.1)
[2018-10-24 20:17] VITALS: BP 136/60
[2018-10-25 06:26] LABS: BASO % 0.2 % (0.0-1.0); EOS # 0.2 10*3/uL (0.0-0.4); EOS % 3.9 % (1.0-4.0); HEMATOCRIT 24.7 % (37.0-47.0); HEMOGLOBIN 7.8 g/dl (12.0-16.0); LYMPH # 0.7 10*3/uL (1.3-4.4); LYMPH % 12.2 % (27.0-41.0); MEAN CELL VOLUME 93.6 fl (81.0-99.0); MEAN CORPUSCULAR HGB 29.5 pg (27.0-31.0); MEAN CORPUSCULAR HGB CONC 31.6 g/dl (33.0-37.0); MEAN PLATELET VOLUME 10.3 fl (9.6-12.3); MONO # 0.4 10*3/uL (0.1-1.0); MONO % 6.6 % (3.0-9.0); NEUT # 4.5 10*3/uL (2.3-7.9); NEUT % 76.8 % (47.0-73.0); PLATELET COUNT AUTOMATED 214 10*3/uL (130-400); RED BLOOD COUNT 2.64 10*6/uL (4.10-5.10); RED CELL DISTRI WIDTH 13.2 % (0-14.5); WHITE BLOOD COUNT 5.9 10*3/uL (4.8-10.8)
[2018-10-25 07:32] VITALS: BP 131/72
[2018-10-25 19:54] VITALS: BP 130/61
[2018-10-26 06:37] LABS: BASO % 0.2 % (0.0-1.0); EOS # 0.3 10*3/uL (0.0-0.4); EOS % 5.9 % (1.0-4.0); HEMATOCRIT 23.5 % (37.0-47.0); HEMOGLOBIN 7.7 g/dl (12.0-16.0); LYMPH # 1.1 10*3/uL (1.3-4.4); LYMPH % 21.8 % (27.0-41.0); MEAN CELL VOLUME 91.4 fl (81.0-99.0); MEAN CORPUSCULAR HGB CONC 32.8 g/dl (33.0-37.0); MEAN PLATELET VOLUME 10.6 fl (9.6-12.3); MONO # 0.4 10*3/uL (0.1-1.0); MONO % 8.9 % (3.0-9.0); NEUT # 3.1 10*3/uL (2.3-7.9); PLATELET COUNT AUTOMATED 202 10*3/uL (130-400); RED BLOOD COUNT 2.57 10*6/uL (4.10-5.10); RED CELL DISTRI WIDTH 13.1 % (0-14.5)
[2018-10-26 06:49] LABS: CREATININE 2.03 mg/dL (0.55-1.02); PHOSPHOROUS 4.2 mg/dL (2.5-4.9)
[2018-10-26 08:01] VITALS: BP 143/67
[2018-10-26 20:09] VITALS: BP 143/67
[2018-10-27 07:58] VITALS: BP 133/61
[2018-10-27 20:00] VITALS: BP 149/73
[2018-10-28 07:30] LABS: CREATININE 2.14 mg/dL (0.55-1.02); PHOSPHOROUS 4.2 mg/dL (2.5-4.9); POTASSIUM 4.1 mmol/L (3.5-5.1)
[2018-10-28 08:33] VITALS: BP 157/81
[2018-10-28 09:07] LABS: NEURONTIN (GABAPENTIN) 33.3 ug/mL (4.0-16.0)
[2018-10-28 15:49] LABS: BASO % 0.4 % (0.0-1.0); EOS # 0.3 10*3/uL (0.0-0.4); EOS % 5.3 % (1.0-4.0); HEMATOCRIT 24.1 % (37.0-47.0); HEMOGLOBIN 7.7 g/dl (12.0-16.0); LYMPH # 1.1 10*3/uL (1.3-4.4); LYMPH % 22.6 % (27.0-41.0); MEAN CELL VOLUME 93.1 fl (81.0-99.0); MEAN CORPUSCULAR HGB 29.7 pg (27.0-31.0); MEAN PLATELET VOLUME 10.3 fl (9.6-12.3); MONO # 0.4 10*3/uL (0.1-1.0); MONO % 7.4 % (3.0-9.0); NEUT % 63.9 % (47.0-73.0); PLATELET COUNT AUTOMATED 244 10*3/uL (130-400); RED BLOOD COUNT 2.59 10*6/uL (4.10-5.10); RED CELL DISTRI WIDTH 13.4 % (0-14.5); WHITE BLOOD COUNT 4.7 10*3/uL (4.8-10.8)
[2018-10-28 19:52] VITALS: BP 152/86
[2018-10-29 07:21] VITALS: BP 152/76
[2018-10-29 10:09] LABS: NEURONTIN (GABAPENTIN) 16.1 ug/mL (4.0-16.0)
[2018-10-29 19:27] VITALS: BP 143/71
[2018-10-30 07:20] VITALS: BP 153/64
[2018-10-30 12:44] LABS: BASO % 0.3 % (0.0-1.0); EOS # 0.4 10*3/uL (0.0-0.4); EOS % 5.3 % (1.0-4.0); HEMATOCRIT 24.7 % (37.0-47.0); HEMOGLOBIN 7.9 g/dl (12.0-16.0); LYMPH # 0.9 10*3/uL (1.3-4.4); LYMPH % 13.3 % (27.0-41.0); MEAN CELL VOLUME 94.3 fl (81.0-99.0); MEAN CORPUSCULAR HGB 30.2 pg (27.0-31.0); MEAN PLATELET VOLUME 10.3 fl (9.6-12.3); MONO # 0.5 10*3/uL (0.1-1.0); MONO % 7.3 % (3.0-9.0); NEUT # 4.9 10*3/uL (2.3-7.9); NEUT % 73.2 % (47.0-73.0); PLATELET COUNT AUTOMATED 241 10*3/uL (130-400); RED BLOOD COUNT 2.62 10*6/uL (4.10-5.10); RED CELL DISTRI WIDTH 13.3 % (0-14.5); WHITE BLOOD COUNT 6.6 10*3/uL (4.8-10.8)
[2018-10-30 20:00] VITALS: BP 127/75
[2018-10-31 08:30] VITALS: BP 135/65
[2018-10-31 20:00] VITALS: BP 151/77
[2018-11-01 07:05] LABS: BASO % 0.2 % (0.0-1.0); EOS # 0.3 10*3/uL (0.0-0.4); EOS % 5.2 % (1.0-4.0); HEMATOCRIT 24.9 % (37.0-47.0); HEMOGLOBIN 8.1 g/dl (12.0-16.0); LYMPH # 0.9 10*3/uL (1.3-4.4); LYMPH % 16.2 % (27.0-41.0); MEAN CORPUSCULAR HGB 30.6 pg (27.0-31.0); MEAN CORPUSCULAR HGB CONC 32.5 g/dl (33.0-37.0); MEAN PLATELET VOLUME 10.7 fl (9.6-12.3); MONO # 0.4 10*3/uL (0.1-1.0); MONO % 8.1 % (3.0-9.0); NEUT # 3.8 10*3/uL (2.3-7.9); NEUT % 69.7 % (47.0-73.0); PLATELET COUNT AUTOMATED 215 10*3/uL (130-400); RED BLOOD COUNT 2.65 10*6/uL (4.10-5.10); RED CELL DISTRI WIDTH 13.4 % (0-14.5); WHITE BLOOD COUNT 5.4 10*3/uL (4.8-10.8)
[2018-11-01 08:09] VITALS: BP 147/79
[2018-11-01 16:06] LABS: HEPATITIS B SURFACE AG Negative (Negative); HEPATITIS C AB <0.1 (0.0-0.9)
[2018-11-01 20:00] VITALS: BP 151/69
[2018-11-02 07:03] VITALS: BP 120/77
[2018-11-02 07:11] LABS: BASO % 0.4 % (0.0-1.0); EOS # 0.2 10*3/uL (0.0-0.4); EOS % 3.3 % (1.0-4.0); HEMATOCRIT 24.9 % (37.0-47.0); HEMOGLOBIN 7.8 g/dl (12.0-16.0); LYMPH # 0.8 10*3/uL (1.3-4.4); LYMPH % 15.1 % (27.0-41.0); MEAN CORPUSCULAR HGB 29.4 pg (27.0-31.0); MEAN CORPUSCULAR HGB CONC 31.3 g/dl (33.0-37.0); MEAN PLATELET VOLUME 11.1 fl (9.6-12.3); MONO # 0.4 10*3/uL (0.1-1.0); MONO % 6.6 % (3.0-9.0); NEUT % 73.3 % (47.0-73.0); PLATELET COUNT AUTOMATED 213 10*3/uL (130-400); RED BLOOD COUNT 2.65 10*6/uL (4.10-5.10); RED CELL DISTRI WIDTH 13.3 % (0-14.5); WHITE BLOOD COUNT 5.4 10*3/uL (4.8-10.8)
[2018-11-02 07:34] LABS: CREATININE 2.61 mg/dL (0.55-1.02); POTASSIUM 3.9 mmol/L (3.5-5.1); TOTAL PROTEIN 5.7 gm/dL (6.4-8.2)
[2018-11-02 20:00] VITALS: BP 134/64
[2018-11-03 07:07] LABS: CREATININE 2.3 mg/dL (0.55-1.02); PHOSPHOROUS 4.2 mg/dL (2.5-4.9); POTASSIUM 4.2 mmol/L (3.5-5.1)
[2018-11-03 07:48] VITALS: BP 125/62
[2018-11-03 12:15] VITALS: BP 149/70
[2018-11-03 19:43] LABS: URINE CHLORIDE, RANDOM < 10 mmol/L
[2018-11-03 19:52] VITALS: BP 130/59
[2018-11-04 07:39] LABS: CREATININE 2.08 mg/dL (0.55-1.02); POTASSIUM 4.1 mmol/L (3.5-5.1); TOTAL PROTEIN 5.4 gm/dL (6.4-8.2)
[2018-11-04 07:46] VITALS: BP 135/67
[2018-11-04 09:08] LABS: NEURONTIN (GABAPENTIN) 19.5 ug/mL (4.0-16.0)
[2018-11-04 20:00] VITALS: BP 170/80
[2018-11-05 08:17] VITALS: BP 146/65
[2018-11-05 19:17] VITALS: BP 155/67
[2018-11-06 06:31] LABS: EOS # 0.2 10*3/uL (0.0-0.4); HEMATOCRIT 24.6 % (37.0-47.0); HEMOGLOBIN 8.1 g/dl (12.0-16.0); MEAN CELL VOLUME 92.8 fl (81.0-99.0); MEAN CORPUSCULAR HGB 30.6 pg (27.0-31.0); MEAN CORPUSCULAR HGB CONC 32.9 g/dl (33.0-37.0); RED BLOOD COUNT 2.65 10*6/uL (4.10-5.10)
[2018-11-06 06:41] LABS: BASO % 0.4 % (0.0-1.0); EOS % 2.7 % (1.0-4.0); LYMPH # 0.9 10*3/uL (1.3-4.4); LYMPH % 12.3 % (27.0-41.0); MONO # 0.7 10*3/uL (0.1-1.0); MONO % 9.8 % (3.0-9.0); NEUT % 73.1 % (47.0-73.0); PLATELET COUNT AUTOMATED 193 10*3/uL (130-400); RED CELL DISTRI WIDTH 13.5 % (0-14.5); WHITE BLOOD COUNT 6.9 10*3/uL (4.8-10.8)
[2018-11-06 06:53] LABS: CREATININE 1.83 mg/dL (0.55-1.02); PHOSPHOROUS 3.1 mg/dL (2.5-4.9); POTASSIUM 3.7 mmol/L (3.5-5.1)
[2018-11-06 07:17] VITALS: BP 128/70
[2018-11-06] MEDS ORDERED: VITAMIN D5000 UNI1 PO (09:44)
[2018-11-06] MEDS ORDERED: ZIPRASIDONE HCL80 M1 PO (09:44)
[2018-11-06] MEDS ORDERED: LACTULOSE20 GM/30 M PO (09:44)
[2018-11-06] MEDS ORDERED: BENZTROPINE ME0.5 MG PO (09:44)
[2018-11-06] MEDS ORDERED: MIRTAZAPINE15 M2 PO (09:44)
[2018-11-06] MEDS ORDERED: EXELON13.3 MG/21 T (09:44)
[2018-11-06] MEDS ORDERED: MEMANTINE HCL10 MG PO (09:44)
== END 2018-11-06 14:24 | disposition other institution (70) | DRG 56 ==
LOC: 3N 15:59
PROVIDERS: Emergency Medicine; Internal Medicine; Internal Medicine Nephrology; Nurse Practitioner Women's Health; Registered Nurse; Student in an Organized Health Care Education/Training Program; ADMIT Psychiatry & Neurology Psychiatry
DX: G30.9 Alzheimer's disease, unspecified (principal); J18.9 Pneumonia, unspecified organism; E43 Unspecified severe protein-calorie malnutrition; N17.0 Acute kidney failure with tubular necrosis; F33.3 Major depressive disorder, recurrent, severe with psychotic symptoms; F23 Brief psychotic disorder; I50.32 Chronic diastolic (congestive) heart failure; I13.0 Hypertensive heart and chronic kidney disease with heart failure and stage 1 through stage 4 chronic kidney disease, or unspecified chronic kidney disease; N25.81 Secondary hyperparathyroidism of renal origin; E87.0 Hyperosmolality and hypernatremia; Z68.41 Body mass index [BMI] 40.0-44.9, adult; E87.8 Other disorders of electrolyte and fluid balance, not elsewhere classified; F02.80 Dementia in other diseases classified elsewhere, unspecified severity, without behavioral disturbance, psychotic disturbance, mood disturbance, and anxiety; E78.5 Hyperlipidemia, unspecified; F41.1 Generalized anxiety disorder; I48.0 Paroxysmal atrial fibrillation; G47.33 Obstructive sleep apnea (adult) (pediatric); K21.9 Gastro-esophageal reflux disease without esophagitis; D63.8 Anemia in other chronic diseases classified elsewhere; E66.01 Morbid (severe) obesity due to excess calories; E87.5 Hyperkalemia; D50.9 Iron deficiency anemia, unspecified; R41.9 Unspecified symptoms and signs involving cognitive functions and awareness; E86.0 Dehydration; J30.9 Allergic rhinitis, unspecified; N18.3 Chronic kidney disease, stage 3 (moderate); E55.9 Vitamin D deficiency, unspecified; M62.81 Muscle weakness (generalized); E11.65 Type 2 diabetes mellitus with hyperglycemia; E11.22 Type 2 diabetes mellitus with diabetic chronic kidney disease; T50.2X5A Adverse effect of carbonic-anhydrase inhibitors, benzothiadiazides and other diuretics, initial encounter; Y92.89 Other specified places as the place of occurrence of the external cause; Z79.4 Long term (current) use of insulin; Z88.8 Allergy status to other drugs, medicaments and biological substances; Z90.49 Acquired absence of other specified parts of digestive tract; Z90.710 Acquired absence of both cervix and uterus; Z82.49 Family history of ischemic heart disease and other diseases of the circulatory system; Z79.82 Long term (current) use of aspirin; Z79.899 Other long term (current) drug therapy